=== PATIENT | male | born 1975 | race Caucasian/White ===

== ENCOUNTER 2021-02-08 07:13 | Emergency (ER) | payer OTHER ==
[~2021-02-08] VITALS: Ht 185.4 cm; Wt 90.7 kg
[~2021-02-08 07:13] MED LIST: AVAPRO300 MG
== END 2021-02-08 11:35 | disposition home or self-care (01) ==
LOC: ER 07:13
DX: R00.2 Palpitations (principal)

== ENCOUNTER 2021-03-08 07:15 | Outpatient (CLI) | payer OTHER | END 2021-03-08 07:18 | disposition home or self-care (01) | LOC: NUCLEAR 07:15 | PROVIDERS: ATTEND Internal Medicine Cardiovascular Disease | DX: I50.1 Left ventricular failure, unspecified (principal); I20.8 Other forms of angina pectoris | CPT/HCPCS: 78452; 93017; A9500 ==

== ENCOUNTER → 2024-10-07 | Emergency (ER) | payer OTHER ==
[~2024-10-07] VITALS: Ht 185.4 cm; Wt 84.4 kg
[~2024-10-07] MED LIST changes: +METOPROLOL SUCC25 MG PO
[2024-10-07 09:34] LABS: BASO % 0.3 % (0.1-1.2); EOS # 0.19 (0.04-0.54); EOS % 5.2 % (0.7-7.0); LYMPH # 1.21 (1.18-3.74); LYMPH % 33.0 % (19.3-53.1); MEAN PLATELET VOLUME 10.70 fl (9.4-12.4); MONO # 0.28 (0.24-0.82); MONO % 7.6 % (4.7-12.5); NEUT # 1.98 (1.56-6.13); NEUT % 53.9 % (34.0-71.1); RED CELL DISTRIBUTION WIDTH 12.4 % (11.6-14.4)
[2024-10-07 09:54] LABS: ALT/SGPT 36.0 U/L (12-78); AST/SGOT 36.0 U/L (15-37); BILIRUBIN TOTAL 2.17 mg/dL (0.3-1.2); BUN CREA RATIO 16.0 (7.0-25.0); CREATININE SERUM 1.27 mg/dL (0.70-1.30); GFR 60.03; GLOBULINA 3.9 G/DL (2.4-3.5); GLUCOSE FASTING 105.0 mg/dL (65-100); OSMOLALITY SERUM 282.0 MOSM/KG (275-295)
== END | disposition home or self-care (01) ==
LOC: ER 06:17
PROVIDERS: Preventive Medicine Public Health & General Preventive Medicine
DX: R07.89 Other chest pain (principal); I10 Essential (primary) hypertension; E80.4 Gilbert syndrome

== ENCOUNTER 2024-10-19 09:36 | Outpatient (CLI) | payer OTHER | END 2024-10-19 09:44 | disposition home or self-care (01) | LOC: RAD 09:36 | PROVIDERS: ATTEND Internal Medicine Cardiovascular Disease | DX: I51.7 Cardiomegaly (principal) ==